=== PATIENT | female | born 1980 | race Caucasian/White ===

== ENCOUNTER 2018-05-01 10:23 | Emergency (ER) | payer OTHER ==
[~2018-05-01 10:23] MED LIST: ALPRAZOLAM1 M2 PO; ALPRAZOLAM1 MG PO; AMOXICILLIN875 M1 PO; AUGMENTIN 875-1 EACH PO; BACLOFEN20 M1 PO; CIPRO500 M1 PO; CYCLOBENZAPRINE10 M1 PO; DEPO-PROVE150 MG/11 IM; DILAUDID2 M1 PO; DILAUDID2 MG PO; EPIPEN 2-P0.3 MG/0.3 IM; ESCITALOPRAM10 MG PO; LISINOPRIL10 M1 PO; MECLIZINE HCL25 M1 PO; MEDROL DOSEPAK1 PAC PO; MOBIC15 M1 PO; MOTRIN 800MG T800 MG PO; NAPROXEN500 MG; NORVASC 5MG TAB5 MG PO; OXYCODONE HCL5 M1 PO; OXYCODONE5 M1 PO; PERCOCET 325 MG1 TA2 PO; PERCOCET 5-3251 EACH PO; PYRIDIUM100 M1 PO; TOPROL XL25 MG PO; VALIUM5 M1 PO; ZOFRAN ODT4 M1 SL
[2018-05-01 10:44] VITALS: BP 117/76
--- NOTE | 2018-05-01 11:42 | ED ANIMAL BITE/WOUND CHECK ---
History of Present Illness General Chief Complaint: Suture Removal/Wound Recheck Stated Complaint: WOUND CHECK Source: patient Exam Limitations: no limitations Vital Signs & Intake/Output Vital Signs & Intake/Output Vital Signs Date Time Temp Pulse Resp B/P B/P Pulse O2 O2 Flow FiO2 Mean Ox Delivery Rate 05/01 1044 97.9 70 117/76 98 Allergies Coded Allergies: Sulfa (Sulfonamide Antibiotics) (RASH/HIVES 08/10/16) acetaminophen (From THERAFLU COLD-SORE THROAT (PE)) (CONVULSIONS A KID ) clindamycin (RASH/HIVES 08/10/16) doxycycline (RASH/HIVES 08/10/16) hornet venom (ANAPHYLAXIS 08/10/16) pheniramine (From THERAFLU COLD-SORE THROAT (PE)) (CONVULSIONS A KID 08/10/16 ) phenylephrine (From THERAFLU COLD-SORE THROAT (PE)) (CONVULSIONS A KID ) spider venom (RASH, EYES SWELL 08/10/16) venom-honey bee (BEE VENOM (HONEY BEE)) (ANAPHYLAXIS 08/10/16) venom-wasp (WASP VENOM) (ANAPHYLAXIS 08/10/16) Reconcile Medications Alprazolam 1 MG TABLET 1 TAB PO BID PRN ANXIETY (Reported) Amoxicillin/Potassium Clav (Augmentin 875-125 Tablet) 875 MG-125 MG TABLET 1 TAB PO BID cat bite Baclofen 20 MG TABLET 1 TAB PO TID PRN PAIN Ciprofloxacin HCl (Cipro) 500 MG TABLET 1 TAB PO BID UTI Cyclobenzaprine HCl 10 MG TABLET 1 TAB PO QPM PRN MUSCLE SPASMS (Reported) Epinephrine (Epipen 2-David) 0.3 MG/0.3 ML AUTO.INJCT 0.3 MG IM AD PRN ALLERGIC REACTION (Reported) Hydromorphone HCl (Dilaudid) 2 MG TABLET 1 TAB PO BIDP PRN pain Hydromorphone HCl (Dilaudid) 2 MG TABLET 1 TAB PO Q6P PRN PAIN Hydromorphone HCl (Dilaudid) 2 MG TABLET 1 TAB PO BIDP PRN PAIN Lisinopril 10 MG TABLET 1 TAB PO DAILY BP (Reported) Medroxyprogesterone Acetate (Depo-Provera) 150 MG/1 ML SYRINGE 1 ML IM Q3M CONTROL (Reported) Meloxicam (Mobic) 15 MG TABLET 1 TAB PO DAILY PRN PAIN Ondansetron (Zofran Odt) 4 MG TAB.RAPDIS 1 TAB SL TID PRN NAUSEA Ondansetron (Zofran Odt) 4 MG TAB.RAPDIS 1 TAB SL TID PRN NAUSEA Oxycodone HCl/Acetaminophen (Percocet 5-325 MG Tablet) 5 MG-325 MG TABLET 1 TAB PO BID pain Phenazopyridine HCl (Pyridium) 100 MG TABLET 1 TAB PO TID PRN DYSURIA NOTE THAT YOUR URINE MAY CHANGE THE COLOR ORANGE Triage Note: PER PT SEEN 2 DAYS AGO AFTER KNOWN CAT BIT PT REPORTS WAS ON DOXYCYCLINE, BUT LIPS AND NOSE WAS SO SWOLLEN, CAME TO ED SWITCHED TO AUGMRNTIN AND IT IS BETTER BUT HAS A COUPLE OF SMALL RAISED AREAS THAT ARE HARD HERE FRO RECHECK Triage Nurses Notes Reviewed? yes : No Patient currently breastfeeds: No HPI: 38-year-old female presents emergency department for wound check. She was bit by 4 days ago. Initially she was seen by her primary doctor who placed her on doxycycline and updated her tetanus shot. She was then seen 2 days after this and started on Augmentin as the swelling did not improve. She has been taking Augmentin as prescribed. States she has significant improvement in her symptoms. Swelling has gone down significantly and overall redness has improved. She denies any fevers or chills. No nausea or vomiting. Past History Travel History Traveled to [place] past 21 day No Medical History Any Pertinent Medical History? 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 No Review of Systems Review of Systems Constitutional: Reports: no symptoms. EENTM: Reports: no symptoms. Respiratory: Reports: no symptoms. Cardiovascular: Reports: no symptoms. Skin: Reports: see HPI. All Other Systems: Reviewed and Negative Physical Exam Physical Exam General Appearance: well developed/nourished, no apparent distress Head: atraumatic, normal appearance Eyes: Bilateral: normal appearance, PERRL, EOMI. Ears, Nose, Throat: normal pharynx, normal ENT inspection Neck: normal inspection, supple, No lymphadenopathy Respiratory: normal breath sounds, no respiratory distress Cardiovascular: regular rate/rhythm Skin: Well healing bite wounds upper and lower lips. No surrounding cellulitis, no localized swelling, no discharge or palpable abscess. Progress Differential Diagnosis: abscess, cellulitis, joint infection, tenosysnovitis Plan of Care: 38-year-old female who presented for a wound check from a Bite 4 days ago. She has been taking Augmentin as prescribed. Her tetanus shot was updated. She is feeling much better. There is been significant improvement in her rash. Swelling is overall decreased. There is no discharge or abscess. No cellulitis on exam. She is afebrile and well-appearing. I will have her continue to take Augmentin as prescribed. She should follow-up with her doctor in 2-3 days for another wound check. I encouraged her to return immediately to the emergency department with any new or worsening symptoms including fever worsening redness/ swelling. Departure Departure Disposition: HOME OR SELF CARE Condition: Stable Clinical Impression Primary Impression: Encounter for wound re-check Referrals: Von Holt MD (PCP/Family) Additional Instructions: Keep taking antibiotics as prescribed. You should follow-up with your primary doctor in 2-3 days for wound check. Return to emergency department immediately with any new or worsening symptoms including worsening redness or fever. Departure Forms: Customer Survey General Discharge Information
== END 2018-05-01 11:50 ==
LOC: ERH 10:23
DX: Z48.00 Encounter for change or removal of nonsurgical wound dressing (principal)